=== PATIENT | female | born 1985 | race Caucasian/White ===

== ENCOUNTER 2017-06-08 19:23 | Emergency (ER) | payer OTHER ==
[~2017-06-08] VITALS: Ht 165.1 cm; Wt 108.5 kg
[~2017-06-08 19:23] MED LIST: NO CURRENT MEDS
[2017-06-08 19:47] VITALS: Ht 165.1 cm; Wt 108.5 kg
[2017-06-08] MEDS ORDERED: ACETAMINOPHEN 500 MG TAB PO STA (21:34)
[2017-06-08] MEDS ORDERED: SOD CHLORIDE 0.9% 100 ML ONE (21:58)
[2017-06-08] MEDS ORDERED: IOHEXOL 300MG/ML 150 ML BTL ONE (21:58)
[2017-06-08] MEDS ORDERED: DEXAMETHASONE 10 MG/ML 1 ML INJ IV ONE (22:00)
[2017-06-08] MEDS ORDERED: SOD CHLORIDE 0.9% 1,000 ML IV ONE (22:00)
[2017-06-08 22:07] LABS: ADD UMIC YES; UR ASCORBIC ACID 40 mg/dL (NEGATIVE); UR BACTERIA FEW /HPF (NONE SEEN); UR BILIRUBIN (Dip) NEGATIVE (NEGATIVE); UR BLOOD (Dip) NEGATIVE (NEGATIVE); UR CLARITY SLIGHTLY CLOUDY (CLEAR); UR COLOR YELLOW (YELLOW); UR GLUCOSE (Dip) NEGATIVE (NEGATIVE); UR KETONES (Dip) TRACE mg/dL (NEGATIVE); UR LEUKOCYTE ESTERASE (Dip) TRACE Leu/ul (NEGATIVE); UR MUCUS FEW /HPF (NONE SEEN); UR NITRITE (Dip) NEGATIVE (NEGATIVE); UR RBC 3 /HPF (0-5); UR SPECIFIC GRAVITY (Dip) 1.015 (1.003-1.030); UR SQUAMOUS EPITHELIAL CELL FEW /HPF (FEW); UR TOTAL PROTEIN (Dip) NEGATIVE (NEGATIVE); UR UROBILINOGEN (Dip) 2+ mg/dL (NEGATIVE)
--- NOTE | 2017-06-08 22:08 | RADRPT ---
PROCEDURE: XR Chest. CLINICAL INDICATION: Cough. TECHNIQUE: Single frontal view. COMPARISON: None. FINDINGS: The lungs are clear. The heart size is normal. There is no pleural effusion. There is no pneumothorax. IMPRESSION: 1. Normal chest radiograph. RPTAT: QQ .Fili Rehman MD, Date Time Electronically viewed and signed by .Fili Rehman MD, on 06/08/2017 22:08 .R/
[2017-06-08 22:13] LABS: ABNORMAL IP MESSAGE 1; BASOPHIL # 0.1 10^3/ul (0.0-0.1); BASOPHILS % 0.5 % (0.0-2.0); EOSINOPHILS # 0.1 10^3/ul (0.0-0.5); EOSINOPHILS % 0.2 % (0.0-7.0); HEMATOCRIT 39.5 % (37.0-47.0); HEMOGLOBIN 12.7 g/dl (12.0-16.0); LYMPHOCYTES # 3.4 10^3/ul (0.8-2.9); LYMPHOCYTES % 15.3 % (15.0-51.0); MEAN CORPUSCULAR HEMOGLOBIN 25.7 pg (29.0-33.0); MEAN CORPUSCULAR HGB CONC 32.2 g/dl (32.0-37.0); MEAN CORPUSCULAR VOLUME 79.8 fl (82.0-101.0); MEAN PLATELET VOLUME 9.2 fl (7.4-10.4); MONOCYTE # 1.6 10^3/ul (0.3-0.9); MONOCYTES % 7.1 % (0.0-11.0); NEUTROPHIL # 16.8 10^3/ul (1.6-7.5); NEUTROPHILS % 76.2 % (39.0-77.0); PLATELET COUNT 401 10^3/UL (140-415); RED BLOOD COUNT 4.95 10^6/ul (4.20-5.40); RED CELL DISTRIBUTION WIDTH 15.5 % (11.5-14.5)
[2017-06-08 22:29] LABS: POSITIVE DIFF @See below
[2017-06-08 22:33] LABS: ALBUMIN 4.5 g/dl (3.3-4.9); ALBUMIN/GLOBULIN RATIO 1.09; BILIRUBIN,INDIRECT 0.5 mg/dl (0-1.1); BILIRUBIN,TOTAL 0.5 mg/dl (0.2-1.3); CREATININE 0.71 mg/dl (0.44-1.00); POTASSIUM 3.6 mmol/L (3.5-5.1); TOTAL PROTEIN 8.6 g/dl (6.1-8.1)
--- NOTE | 2017-06-08 23:51 | RADRPT ---
PROCEDURE: CT scan of the soft tissues of the neck with contrast. CLINICAL INDICATION: Neck pain. TECHNIQUE: Helical axial sections were obtained through the soft tissues of the neck during intrav enous injection of 80 cc of Omnipaque-300. Sagittal and coronal formatted images were accomplished using the data from the axial images. Total exam DLP is 247.37 mGy-cm. CTDIvol is 10.75 mGy. One o r more of the following dose reduction techniques were used: Automated exposure control, adjustment of the mA and/or kV according to patient size, use of iterative reconstruction technique. COMPARISON: No prior studies available for comparison. FINDINGS: There is no mass. There is bilateral cervical lymphadenopathy with the largest lymph node on the right measuring 2.2 x 1.8 x 3.5 cm and the largest lymph node on the left measuring 2.1 x 1.3 x 2.3 cm. The vascular structures are normal. The thyroid is normal. The airway is intact. The epiglottis is normal. The tonsils are enlarged. Bones are grossly normal. The lung apices are normal. IMPRESSION: 1. Enlarged tonsils. 2. No abscess. 3. Bilateral cervical lymphadenopathy, likely reactive. 4. Otherwise normal CT scan of the soft tissues of the neck. RPTAT: QQ .Fili Rehman MD, MD Date Time Electronically viewed and signed by .Fili Rehman MD, on 06/08/2017 23:50 .R/
[2017-06-09] MEDS ORDERED: IBUP-1542 PO (00:08)
[2017-06-09] MEDS ORDERED: PRED20TA PO (00:08)
--- NOTE | 2017-06-09 00:15 | ERD ---
ER Documentation Chief Complaint Date/Time DATE: 06/09/17 TIME: 00:12 Chief Complaint cough x2 wks, fever x3days. seen at [place], taking Keflex and Motrin HPI This is a 31-year-old female presents to the ER stating she has had a cough over the last 2 months only at night. 3 days ago patient developed a sore throat and a fever. Today patient developed ear pain. Patient went to [place] yesterday and was given Keflex and Motrin. She states she still has a fever today, even though she has been taking Keflex all day. That is painful for her to swallow, however she does not have any difficulty in swallowing. Patient denies any chest pain or shortness of breath. ROS 12 point review of systems was done, all negative except per HPI. Medications Home Meds Active Scripts Prednisone* (Prednisone*) 20 Mg Tab, 60 MG PO DAILY for 5 Days, TAB Prov:MARIELLEMAYTE C 06/09/17 Ibuprofen* (Motrin*) 600 Mg Tab, 600 MG PO Q6, #30 TAB Prov:MARIELLEWILLIAMMAYTE C 06/09/17 Reported Medications [No Current Meds] No Conflict Check 09/20/09 Allergies Allergies: Coded Allergies: No Known Drug Allergy (Verified Allergy, Unknown, 09/20/09) PMhx/Soc History of Surgery: Yes (CHOLECYSTECTOMY) Anesthesia Reaction: No Hx Neurological Disorder: No Hx Respiratory Disorders: No Hx Cardiac Disorders: No Hx Psychiatric Problems: No Hx Miscellaneous Medical Probl: No Hx Alcohol Use: No Hx Substance Use: No Hx Tobacco Use: No Smoking Status: Never smoker Physical Exam Vitals Vital Signs Date Time Temp Pulse Resp B/P Pulse Ox O2 Delivery O2 Flow Rate FiO2 06/08/17 19:47 100.8 110 18 131/62 100 Physical Exam GENERAL: The patient is well-developed, well-nourished, in no acute distress. NECK: Cervical spine is non tender with no step off. Supple, no nuchal rigidity HEENT: Atraumatic. Pupils equal, round and reactive to light. Extraocular muscles are grossly intact. Conjunctivae pink, no discharge. Bilateral tympanic membranes are clear with no evidence of erythema, effusion or dulling of the light reflex. Tonsilar erythema with exudates, tonsillar swelling, no uvular deviation or kissing tonsils. RESPIRATORY: Clear to auscultation bilaterally. There are no rales, wheezes or rhonchi. HEART: Regular rate and rhythm. No murmurs, clicks, rubs or gallops. EXTREMITIES: No clubbing or cyanosis. Full range of motion. Grossly neurovascularly intact. NEUROLOGIC: Alert and oriented. Cranial nerves II through XII are intact. SKIN: There is no rash. The skin is warm and dry. Result Diagram: 06/08/17215406/08/172154 Results 24 hrs Laboratory Tests Test 06/08/17 21:45 06/08/17 21:55 Urine Color YELLOW Urine Clarity SLIGHTLY CLOUDY Urine pH 6.0 Urine Specific [place] 1.015 Urine Ketones TRACEmg/dL Urine Nitrite NEGATIVEmg/dL Urine Bilirubin NEGATIVEmg/dL Urine Urobilinogen 2+mg/dL Urine Leukocyte Esterase TRACELeu/ul Urine Microscopic RBC 3/HPF Urine Microscopic WBC 6/HPF Urine Squamous Epithelial Cells FEW/HPF Urine Bacteria FEW/HPF Urine Mucus FEW/HPF Urine Hemoglobin NEGATIVEmg/dL Urine Glucose NEGATIVEmg/dL Urine Total Protein NEGATIVEmg/dl White Blood Count 22.010^3/ul Red Blood Count 4.9510^6/ul Hemoglobin 12.7g/dl Hematocrit 39.5% Mean Corpuscular Volume 79.8fl Mean Corpuscular Hemoglobin 25.7pg Mean Corpuscular Hemoglobin Concent 32.2g/dl Red Cell Distribution Width 15.5% Platelet Count 42886^3/UL Mean Platelet Volume 9.2fl Neutrophils % 76.2% Lymphocytes % 15.3% Monocytes % 7.1% Eosinophils % 0.2% Basophils % 0.5% Nucleated Red Blood Cells % 0.0/100WBC Neutrophils # 16.810^3/ul Lymphocytes # 3.410^3/ul Monocytes # 1.610^3/ul Eosinophils # 0.110^3/ul Basophils # 0.110^3/ul Nucleated Red Blood Cells # 0.010^3/ul Sodium Level 137mmol/L Potassium Level 3.6mmol/L Chloride Level 101mmol/L Carbon Dioxide Level 27mmol/L Anion Gap 13 Blood Urea Nitrogen 5mg/dl Creatinine 0.71mg/dl Glucose Level 99mg/dl Calcium Level 9.0mg/dl Total Bilirubin 0.5mg/dl Direct Bilirubin 0.00mg/dl Indirect Bilirubin 0.5mg/dl Aspartate Amino Transf (AST/SGOT) 20IU/L Alanine Aminotransferase (ALT/SGPT) 35IU/L Alkaline Phosphatase 115IU/L Total Protein 8.6g/dl Albumin 4.5g/dl Globulin 4.10g/dl Albumin/Globulin Ratio 1.09 Current Medications Medications (Trade) Dose Ordered Sig/[place] Route PRN Reason Start Time Stop Time Status Last Admin Dose Admin Acetaminophen (Tylenol Tab) 1,000 mg ONCE STAT PO 06/08/17 21:34 06/08/17 21:39 DC 06/08/17 22:00 Dexamethasone 10 mg 10 mg ONCE ONCE IV 06/08/17 22:00 06/08/17 22:01 DC 06/08/17 22:00 Sodium Chloride (NS) 1,000 ml @ 1,000 mls/hr Q1H ONCE IV 06/08/17 22:00 06/08/17 22:59 DC 06/08/17 21:55 IV Flush 10 ml 10 ml STK-MED ONCE .ROUTE 06/08/17 21:58 06/08/17 21:59 DC 06/08/17 22:52 Sodium Chloride (NS) 100 ml @ ud STK-MED ONCE .ROUTE 06/08/17 21:58 06/08/17 21:59 DC 06/08/17 22:53 Iohexol (Omnipaque 300mg/ ml) 150 ml STK-MED ONCE .ROUTE 06/08/17 21:58 06/08/17 21:59 DC 06/08/17 22:53 Procedures/MDM This is a 31-year-old female presents to the ER with sore throat, fever, cough. Rapid strep test was negative and there is no evidence of retropharyngeal abscess or peritonsillar abscess. This is likely viral in etiology, patient however was told to continue with medications prescribed by her doctor and she will be given a short course of steroids. Patient is able to tolerate p.o. fluids and does not have any difficulty in swallowing. She is not hypoxic or in any respiratory distress. Patient stable for outpatient follow-up. She is to follow-up with her primary care doctor within 1-2 days or return to ER sooner if symptoms worsen. My medical decision making shared with patient she understands and agrees with plan. Departure Diagnosis: Primary Impression: Pharyngitis Condition: Stable Patient Instructions: Pharyngitis, Viral Additional Instructions: Call your primary care doctor TOMORROW for an appointment during the next 1-2 days.See the doctor sooner or return here if your condition worsens before your appointment time. MAYTE PALOMARES Jun 09, 2017 00:15
[2017-06-09 00:45] VITALS: PULSE 88; RESP 20; TEMP 98.8
== END 2017-06-09 00:20 | disposition home or self-care (01) ==
LOC: FTE 19:23
DX: J02.9 Acute pharyngitis, unspecified (principal)
CPT/HCPCS: 70491; 71010; 80053; 81001; 85025; 87880; 96374; J1100; J7030; Q9967; Z7502; Z7610

== ENCOUNTER 2017-09-05 16:29 | Emergency (ER) | END 2017-09-05 16:59 | disposition home or self-care (01) ==